=== PATIENT | female | born 1975 | race Caucasian/White ===

== ENCOUNTER 2019-01-11 19:55 | Emergency (ER) | payer OTHER ==
[~2019-01-11] VITALS: Ht 172.7 cm; Wt 95.7 kg
--- NOTE | 2019-01-11 20:04 | ED.ADGEN ---
Past History Past Medical History: Bronchitis, Hypothyroid Past Surgical History: Cholecystectomy, Hysterectomy Smoking: Cigarettes Adult General Chief Complaint Chief Complaint ".. I got aches.. fever, chills. cough,... sore throat.. and this blister on my lower lip... it been getting worse the last couple days.. I tried to get in to see Dr. Mcghee.. but they could not get me worked in..." HPI HPI Patient is a 43 year old female who presents with above hx and complaints malaise, fever, myalgia, arthralgia, pharyngitis, cough, wheezing, fever blister, and fatigue. Symptoms have been worse the last couple days. Patient denies any travel. Patient denies any specific ill contacts. Denies any history immunosuppression. Patient does smoke. Patient follows with Dr. Zaragoza. History of hypothyroidism Review of Systems Review of Systems Constitutional:Hx. fever or chills [] Eyes: Denies change in visual acuity, redness, or eye pain [] HENT: Hx. of nasal congestion and sore throat [] Respiratory: Hx of cough and wheezing. Cardiovascular: No additional information not addressed in HPI [] GI: Denies abdominal pain, nausea, vomiting, bloody stools or diarrhea [] : Denies dysuria or hematuria [] Musculoskeletal: Denies myalgia or arthralgia Integument: ]fever blister Neurologic: Denies headache, focal weakness or sensory changes [] Endocrine: Denies polyuria or polydipsia [] All other systems were reviewed and found to be within normal limits, except as documented in this note. Family History Family History Noncontributory Current Medications Current Medications Current Medications Medications (Trade) Dose Ordered Sig/Vitaliy Start Time Stop Time Status Last Admin Dose Admin Albuterol Sulfate (Ventolin Hfa Inhaler) 2 puff 1X ONCE 01/11/19 21:00 01/11/19 21:01 DC 01/11/19 21:16 2 PUFF Azithromycin (Zithromax) 500 mg 1X ONCE 01/11/19 21:15 01/11/19 21:20 DC 01/11/19 21:18 500 MG Prednisone (Prednisone) 50 mg 1X ONCE 01/11/19 21:00 01/11/19 21:01 DC 01/11/19 21:11 50 MG See nursing for home meds Allergies Allergies Allergies Coded Allergies Type Severity Reaction Last Updated Verified No Known Drug Allergies 01/11/19 No No known drug allergies Physical Exam Physical Exam Constitutional: Moderate acute distress, non-toxic appearance. [] HENT: Normocephalic, atraumatic, bilateral external ears normal, oropharynx moist, injected pharynx, no oral exudates, nose swollen turbinates. Fever blister right lower lip Eyes: PERRLA, EOMI, conjunctiva normal, no discharge. [] Neck: Normal range of motion, no tenderness, supple, no stridor. [] Cardiovascular:Heart rate regular rhythm, no murmur [] Lungs & Thorax: Bilateral breath sounds equal at apex with scattered wheezes on auscultation [] Abdomen: Bowel sounds normal, soft, no tenderness, no masses, no pulsatile mas ses. [Old surgery scars.] Skin: Warm, dry, no erythema, no rash. [] Back: No tenderness, no CVA tenderness. [] Extremities: No tenderness, no cyanosis, no clubbing, ROM intact, no edema. [] Neurologic: Alert and oriented X 3, normal motor function, normal sensory function, no focal deficits noted. [] Psychologic: Affect anxious, judgement normal, mood normal. [] Current Patient Data Vital Signs Vital Signs Date Time Temp Pulse Resp B/P (MAP) Pulse Ox O2 Delivery O2 Flow Rate FiO2 01/11/19 21:10 98.5 116 20 124/56 (78) 97 Room Air Lab Results Laboratory Tests Test 01/11/19 20:00 Urine Collection Type Unknown Urine Color Yellow Urine Clarity Hazy Urine pH 5.5 Urine Specific [place] 1.025 Urine Protein Trace (NEG-TRACE) Urine Glucose (UA) Neg mg/dL (NEG) Urine Ketones (Stick) Trace mg/dL (NEG) Urine Blood Mod (NEG) Urine Nitrite Neg (NEG) Urine Bilirubin Neg (NEG) Urine Urobilinogen Dipstick 0.2 mg/dL (0.2 mg/dL) Urine Leukocyte Esterase Neg (NEG) Urine RBC 3-5 /HPF (0-2) Urine WBC Occ /HPF (0-4) Urine Squamous Epithelial Cells Occ /LPF Urine Bacteria Few /HPF (0-FEW) Urine Mucus Slight /LPF Urine Opiates Screen Neg (NEG) Urine Methadone Screen Neg (NEG) Urine Barbiturates Neg (NEG) Urine Phencyclidine Screen Neg (NEG) Urine Amphetamine/Methamphetamine Neg (NEG) Urine Benzodiazepines Screen Neg (NEG) Urine Cocaine Screen Neg (NEG) Urine Cannabinoids Screen Neg (NEG) Urine Ethyl Alcohol Neg (NEG) Influenza Type A (Rapid) Negative (NEGATIVE) Influenza Type B (Rapid) Negative (NEGATIVE) Group A Streptococcus Rapid Negative (NEGATIVE) EKG EKG [] Radiology/Procedures Radiology/Procedures [] Course & Med Decision Making Course & Med Decision Making Pertinent Labs and Imaging studies reviewed. (See chart for details) Patient take prednisone 50 mg day for 5 days. Patient take his Zithromax 250 every day for 5 days. Patient uses MDI 2 puffs 4 times a day. Patient encouraged to stop smoking. Patient follow-up primary care. Patient take Tylenol and ibuprofen as needed for discomfort. Patient take Benadryl 25-50 mg up 4 times a day for coughing and drainage. Patient return if any concerns. Time of discharge stated she felt much better. [] Final Impression Final Impression 1. Pharyngitis 2. Upper respiratory infection 3. History of fevers[] 4. Bronchitis 5. Tobacco use. Dragon Disclaimer Dragon Disclaimer This electronic medical record was generated, in whole or in part, using a voice recognition dictation system. Discharge Summary Visit Information Final Diagnosis Problems Medical Problems: (1) Bronchitis Status: Acute (2) Upper respiratory infection Status: Acute Brief Hospital Course Allergies Allergies Coded Allergies Type Severity Reaction Last Updated Verified No Known Drug Allergies 01/11/19 No Vital Signs Vital Signs Date Time Temp Pulse Resp B/P (MAP) Pulse Ox O2 Delivery O2 Flow Rate FiO2 01/11/19 21:10 98.5 116 20 124/56 (78) 97 Room Air Lab Results Laboratory Tests Test 01/11/19 20:00 Urine Collection Type Unknown Urine Color Yellow Urine Clarity Hazy Urine pH 5.5 Urine Specific [place] 1.025 Urine Protein Trace (NEG-TRACE) Urine Glucose (UA) Neg mg/dL (NEG) Urine Ketones (Stick) Trace mg/dL (NEG) Urine Blood Mod (NEG) Urine Nitrite Neg (NEG) Urine Bilirubin Neg (NEG) Urine Urobilinogen Dipstick 0.2 mg/dL (0.2 mg/dL) Urine Leukocyte Esterase Neg (NEG) Urine RBC 3-5 /HPF (0-2) Urine WBC Occ /HPF (0-4) Urine Squamous Epithelial Cells Occ /LPF Urine Bacteria Few /HPF (0-FEW) Urine Mucus Slight /LPF Urine Opiates Screen Neg (NEG) Urine Methadone Screen Neg (NEG) Urine Barbiturates Neg (NEG) Urine Phencyclidine Screen Neg (NEG) Urine Amphetamine/Methamphetamine Neg (NEG) Urine Benzodiazepines Screen Neg (NEG) Urine Cocaine Screen Neg (NEG) Urine Cannabinoids Screen Neg (NEG) Urine Ethyl Alcohol Neg (NEG) Influenza Type A (Rapid) Negative (NEGATIVE) Influenza Type B (Rapid) Negative (NEGATIVE) Group A Streptococcus Rapid Negative (NEGATIVE) Brief Hospital Course Ms. Spears is a 43 old female who presented with upper respiratory infection and bronchitis. Discharge Information Condition at Discharge: Improved, Stable Disposition/Orders: D/C to Home Dischare Medications Current Medications Prednisone (Prednisone) 50 mg 1X ONCE PO Last administered on 01/11/19at 21:11; Admin Dose 50 MG; Start 01/11/19 at 21:00; Stop 01/11/19 at 21:01; Status DC Albuterol Sulfate (Ventolin Hfa Inhaler) 2 puff 1X ONCE INH Last administered on 01/11/19at 21:16; Admin Dose 2 PUFF; Start 01/11/19 at 21:00; Stop 01/11/19 at 21:01; Status DC Azithromycin (Zithromax) 500 mg 1X ONCE PO Last administered on 01/11/19at 21:18; Admin Dose 500 MG; Start 01/11/19 at 21:15; Stop 01/11/19 at 21:20; Status DC Active Scripts Active Prednisone 50 Mg Tablet 50 Mg PO DAILY Zithromax (Azithromycin) 250 Mg Tablet 250 Mg PO DAILY 5 Days Hydrocodone-Ibuprofen 7.5-200 (Hydrocodone/Ibuprofen) 1 Each Tablet 1 Tab PO PRN Q6HRS PRN Dragon Disclaimer This chart was dictated in whole or in part using Voice Recognition software in a busy, high-work load, and often noisy Emergency Department environment. It may contain unintended and wholly unrecognized errors or omissions. RILEY CAMPBELL MD Jan 11, 2019 20:04
[2019-01-11 20:48] LABS: BILIRUBIN,URINE NEG (NEG); CLARITY,URINE HAZY; COLOR,URINE YELLOW; GLUCOSE,URINE NEG (NEG)
[2019-01-11 20:49] LABS: BACTERIA,URINE FEW /HPF (0-FEW); NITRITE,URINE NEG (NEG); SQUAMOUS EPITHELIAL CELL,UR OCC /LPF; UROBILINOGEN,URINE 0.2 mg/dL (0.2 mg/dL); WBC,URINE OCC /HPF (0-4)
[2019-01-11 20:52] LABS: BARBITURATES NEG (NEG); BENZODIAZEPINES NEG (NEG); CANNABINOIDS NEG (NEG); COCAINE NEG (NEG); METHADONE NEG (NEG); OPIATES NEG (NEG); PHENCYCLIDINE NEG (NEG)
[2019-01-11] MEDS ORDERED: ALBUTEROL SULFATE 8GM INHALER. INH ONE (21:00)
[2019-01-11] MEDS ORDERED: predniSONE 10 MG TABLET PO ONE (21:00)
[2019-01-11 21:09] LABS: INFLUENZA A PATIENT NEGATIVE (NEGATIVE); INFLUENZA B PATIENT NEGATIVE (NEGATIVE)
[2019-01-11 21:10] VITALS: BP 124/56
[2019-01-11 21:10] LABS: AMPHETAMINE/METHAMPHETAMINE NEG (NEG)
[2019-01-11] MEDS ORDERED: AZITHROMYCIN 250 MG TABLET. PO ONE (21:15)
[2019-01-11] MEDS ORDERED: HYDR-1179 PO (21:18)
[2019-01-11] MEDS ORDERED: AZIT250T PO (21:18)
[2019-01-11] MEDS ORDERED: PRED50TA PO (21:18)
== END 2019-01-11 21:33 | disposition home or self-care (01) ==
LOC: ER 19:55
DX: J40 Bronchitis, not specified as acute or chronic (principal); J02.9 Acute pharyngitis, unspecified; E03.9 Hypothyroidism, unspecified; F17.210 Nicotine dependence, cigarettes, uncomplicated
CPT/HCPCS: 36415; 80307; 81001; 87070; 87804; 87880; 94640; 99284; J0456; J7512; J7613